=== PATIENT | male | born 1965 | race Hispanic/Latino ===

== ENCOUNTER → 2024-09-20 | Outpatient (CLI) | payer BC ==
[2024-09-20 21:48] VITALS: PULSE 72; RESP 12
[2024-09-20 22:33] VITALS: PULSE 64; RESP 16
[2024-09-20 23:04] VITALS: PULSE 66; RESP 14
[2024-09-20 23:33] VITALS: PULSE 62; RESP 16
[2024-09-21] VITALS (16 sets, daily range): PULSE 56–77; RESP 4–19
== END | disposition home or self-care (01) ==
LOC: SLP 20:19
PROVIDERS: ATTEND Family Medicine
DX: G47.33 Obstructive sleep apnea (adult) (pediatric) (principal); R06.83 Snoring; E66.812 Obesity, class 2; Z68.38 Body mass index [BMI] 38.0-38.9, adult
CPT/HCPCS: 95811